=== PATIENT | female | born 1955 | race Caucasian/White ===

== ENCOUNTER → 2019-04-08 09:35 | Outpatient (CLI) | payer MEDICARE, OTHER, SELFPAY ==
--- NOTE | 2019-04-08 09:36 | DI.MG.S_ITS ---
BILATERAL DIGITAL SCREENING MAMMOGRAM 3D/2D WITH CAD: 04/08/2019 CLINICAL: Routine screening. Comparison is made to exams dated: 11/06/2013 mammogram and 09/14/2004 mammogram - [facility]. There are scattered fibroglandular elements in both breasts. Current study was also evaluated with a Computer Aided Detection (CAD) system. No significant masses, calcifications, or other findings are seen in either breast. There has been no significant interval change. IMPRESSION: NEGATIVE There is no mammographic evidence of malignancy. A 1 year screening mammogram is recommended. This exam was interpreted at Station ID: [id number]. NOTE: For mammograms, a report in lay terms will be sent to the patient. Approximately 15% of breast malignancies will not be visualized mammographically. In the management of a palpable breast mass, a negative mammogram must not discourage biopsy of a clinically suspicious lesion. Electronically Signed By: Kg shoemaker/alida:04/08/2019 12:04:13 letter sent: Normal Exam ACR BI-RADS Category 1: Negative [id number]
== END ==
PROVIDERS: PCP Family Medicine; Visit Provider Family Medicine
DX: Z12.31 Encounter for screening mammogram for malignant neoplasm of breast (principal)
CPT/HCPCS: 77063; 77067

== ENCOUNTER → 2020-05-04 16:50 | Outpatient (CLI) | payer MEDICARE, OTHER, SELFPAY | PROVIDERS: PCP Family Medicine; Visit Provider Physician Assistant | DX: R30.0 Dysuria (principal) | CPT/HCPCS: 87086 ==

== ENCOUNTER 2021-06-26 04:42 | Emergency (ER) | payer MEDICARE, OTHER, SELFPAY ==
[2021-06-26 04:52] VITALS: BP 126/72; PULSE 114; RESP 18; TEMP 36.7; O2SAT 95; BMI 25.0
[2021-06-26 05:17] LABS: Bacteria Urine Many (>30); RBC Urine 1-5/HPF (0-5/HPF); Squamous Epithelial Cell Urine None Seen (0-5/HPF); WBC Urine >100/HPF (0-5/HPF)
--- NOTE | 2021-06-26 05:20 | ED_ITS ---
HPI - General Adult General Chief complaint: Urogenital-Female Stated complaint: kidney pain Time Seen by Provider: 06/26/21 04:56 Source: patient Mode of arrival: Ambulatory History of Present Illness HPI narrative: Patient is a 66-year-old female who is here for evaluation of right-sided flank pain. States that the symptoms started within the past 24 hours. She is not having any urinary symptoms. Try to take some ibuprofen at home without much improvement. No fevers but does have some nausea. No diarrhea. She states she feels like her right flank is swollen compared to the left. Had a difficult time sleeping because of the discomfort. Related Data Previous Rx's Medication Instructions Recorded fluticasone propionate 50 2 spray NASAL DAILY #18.2 ml 08/03/19 mcg/actuation nasal spray,suspension (Flonase Allergy Relief) ondansetron 4 mg disintegrating 4 mg PO Q6-8H PRN #30 tab 05/20/21 tablet sumatriptan succinate 100 mg 100 mg PO QDAYP PRN #27 tab 05/20/21 tablet (Imitrex) cephalexin 500 mg capsule 500 mg PO TID 10 Days #29 cap 06/26/21 Allergies Allergy/AdvReac Type Severity Reaction Status Date / Time Sulfa (Sulfonamide Allergy Unknown Verified 05/20/21 09:41 Antibiotics) [SULFA (SULFONAMIDE ANTIBIOTICS)] amoxicillin [From Augmentin] AdvReac Mild N/V Verified 05/20/21 09:41 clavulanic acid AdvReac Mild N/V Verified 05/20/21 09:41 [From Augmentin] Review of Systems Constitutional Constitutional: Denies fever(s) Cardiovascular Cardiovascular: Reports system reviewed and no additional complaints, except as documented Respiratory Respiratory: Reports system reviewed and no additional complaints, except as documented Gastrointestinal Gastrointestinal: Denies abdominal pain, Reports nausea and Denies vomiting Genitourinary Genitourinary: Reports system reviewed and no additional complaints, except as documented Musculoskeletal Musculoskeletal: Reports back pain Hematologic/Lymphatic On Anticoagulants: No Patient History Medical History Nausea Sinusitis UTI (urinary tract infection) Social History Smoking Status: Current every day smoker Smoking Status: Current every day smoker alcohol intake frequency: 0-2 drinks per day Substance Use Type: does not use Exam Initial Vital Signs Initial Vital Signs: Vital Signs Temperature 98.0 F 06/26/21 04:52 Pulse Rate 114 H 06/26/21 04:52 Respiratory Rate 18 06/26/21 04:52 Blood Pressure 126/72 06/26/21 04:52 Pulse Oximetry 95 06/26/21 04:52 Const General: cooperative, comfortable, well developed and well groomed Limitations: mental status not altered HENMT Head: normal to inspection and normocephalic Resp Effort & Inspection: normal respiratory effort Cardio Rate: regular rate GI Inspection: non-distended Palpation: soft and No tender Back/Spine/Pelvis Back: CVA tenderness right Skin Lesions: no lesions Rashes: no rashes Neuro General: patient alert, patient awake and moves all extremities Extrem General: capillary refill normal Psych Appearance: well kempt Course Orders Ordered: ED Orders 06/26/21 04:49 Urine Culture Stat Urine Microscopic Stat Discontinued Medications Cephalexin HCl (Cephalexin 250 Mg Capsule) 500 mg PO NOW ONE Stop: 06/26/21 05:21 Vital Signs Vital signs: Vital Signs - 8 hr 06/26/21 04:52 Temperature 98.0 F Pulse Rate 114 H Respiratory Rate 18 Blood Pressure 126/72 Pulse Oximetry 95 Medical Decision Making Lab Data Labs: Lab Results 06/26/21 Range/Units 04:49 Urine RBC 1-5/hpf (0-5/HPF) Urine WBC >100/hpf H (0-5/HPF) Ur Squamous Epith Cells None seen (0-5/HPF) Urine Bacteria Many (>30) H (None) Ur Culture Indicated? Culture not indicate Micro UA Comment * Urine Dip Bedside Urine Glucose Negative Bedside Urine Bilirubin - Negative Bedside Urine Ketone - Negative Urine Specific [place] 1.020 Bedside Urine Occult Blood + Bedside Urine pH 6.0 Bedside Urine Protein +/- 15 Bedside Urine Urobilinogen - Negative Bedside Urine Nitrite + Positive Bedside Urine Leukocytes ++ 125 Esterase Point of care testing: Urine Dip Bedside Urine Glucose Negative Bedside Urine Bilirubin - Negative Bedside Urine Ketone - Negative Urine Specific [place] 1.020 Bedside Urine Occult Blood + Bedside Urine pH 6.0 Bedside Urine Protein +/- 15 Bedside Urine Urobilinogen - Negative Bedside Urine Nitrite + Positive Bedside Urine Leukocytes ++ 125 Esterase MDM Narrative Medical decision making narrative: Patient does have nitrite positive urine with leukocyte esterase and bacteria and white blood cells. Given her nausea and her right-sided flank pain I do h ave concern for early pyelonephritis. Patient is nontoxic appearing. Review of her labs shows that in April of last year she was treated for urinary tract infection however the urine culture was mixed rayray. She was told to stop taking the antibiotics. She is allergic to sulfa. Will give her Keflex. First dose is given here in the emergency department. Given Toradol for discomfort. Was told to take antibiotics as directed. There were transmitted to the pharmacy of her choice. She was given return precautions. She expressed understanding and agreement. Discharge Plan Departure Patient Disposition: Home Clinical Impression: UTI (urinary tract infection) Instructions: DI for Urinary Tract Infection (UTI) Activity Restrictions/Additional Instructions: I recommend that you take the antibiotics as directed. Your next dose will be later today. Return to the emergency department for any new or worsening symptoms. Prescriptions: New cephalexin 500 mg capsule 500 mg PO TID 10 Days Qty: 29 0RF No Action fluticasone propionate [Flonase Allergy Relief] 50 mcg/actuation spray,suspension 2 spray NASAL DAILY Qty: 18.2 0RF Rx Instructions: administer into each nostril ondansetron 4 mg tablet,disintegrating 4 mg PO Q6-8H PRN (Reason: nausea and vomiting) Qty: 30 0RF sumatriptan succinate [Imitrex] 100 mg tablet 100 mg PO QDAYP PRN (Reason: migraine headache) Qty: 27 0RF Referrals: Miscellaneous,Doctor, MD [Primary Care Provider] -
[2021-06-26] MEDS: cephALEXin 250 MG CAPSULE 500 MG PO (05:24)
[2021-06-26] MEDS: KETOROLAC 30 MG/ML VIAL IM (05:27)
== END 2021-06-26 05:33 | disposition home or self-care (01) ==
PROVIDERS: Emergency Provider Emergency Medicine
DX: N39.0 Urinary tract infection, site not specified (principal)
CPT/HCPCS: 81003; 81015; 87077; 87086; 87186; 96372; 99283; J1885

== ENCOUNTER 2022-03-10 06:53 | Emergency (ER) | payer MEDICARE, OTHER, SELFPAY ==
[2022-03-10] VITALS (7 sets, daily range): BP systolic 102–127; BP diastolic 58–78; PULSE 69–84; RESP 18–21; TEMP 36.4; O2SAT 91–100; BMI 24.0
--- NOTE | 2022-03-10 07:03 | ED_ITS ---
HPI - General Adult General Chief complaint: Dizziness Stated complaint: nausea/dizzy Time Seen by Provider: 03/10/22 07:02 History of Present Illness HPI narrative: 66-year-old female daily smoker with history of migraines presents for evaluation of vague dizziness. She states that she is been having trouble off and on for quite some time at about 2-3 days ago she noticed a significant worsening in her symptoms. She denies any since that the room is spinning but states that she is very lightheaded and profoundly nauseated. She gets pains in her neck when the seems to happened. She has had manipulation by a chiropractor that seemed to help. She denies any known trauma, fever use of blood thinners. She denies blurred vision, trouble speech but does state on occasion she gets trouble with her left arm. She is had no chest pain or shortness of breath. She denies fever or chills. She has had no planned change in diet but states she is been so nauseated for the past few days that she is been unable to eat though she has been keeping liquids down. She denies abdominal pain, diarrhea nor urinary complaints such as dysuria, frequency or urgency. She denies any medication change. She was recently out of state and was seen and evaluated at an urgent care in [place] and told she has vertigo. She does not think she is actually having symptoms at the moment but states it has been terrible the past few days Related Data Previous Rx's Medication Instructions Recorded fluticasone propionate 50 2 spray intranasal DAILY #18.2 mL 08/03/19 mcg/actuation nasal spray,suspension (Flonase Allergy Relief) ondansetron 4 mg disintegrating 4 mg PO Q6-8H PRN nausea and 05/20/21 tablet vomiting #30 tabs sumatriptan succinate 100 mg 100 mg PO QDAYP PRN migraine 05/20/21 tablet (Imitrex) headache #27 tabs ondansetron 4 mg disintegrating 4 mg PO TID-QID PRN nausea and 03/10/22 tablet vomiting #20 tabs Allergies Allergy/AdvReac Type Severity Reaction Status Date / Time Sulfa (Sulfonamide Allergy Unknown Verified 05/20/21 09:41 Antibiotics) [SULFA (SULFONAMIDE ANTIBIOTICS)] amoxicillin [From Augmentin] AdvReac Mild N/V Verified 05/20/21 09:41 clavulanic acid AdvReac Mild N/V Verified 05/20/21 09:41 [From Augmentin] Review of Systems Review of Systems Narrative: GENERAL: Denies chills, fatigue, malaise, fever, sweats. HEENT: Denies sinus pain, ear pain, sore throat, difficulty swallowing, dizziness. RESPIRATORY: Denies dyspnea, cough, wheezing, hemoptysis, sputum. CARDIOVASCULAR: Denies chest pain, palpitations, orthopnea, edema, GASTROINTESTINAL: See HPI : Denies dysuria, frequency, incontinence, hematuria, urinary retention. MUSCULOSKELETAL: denies weakness, joint pain, or bony pain SKIN: Denies rash, skin lesions, or other NEUROLOGIC: See HPI PSYCHIATRIC: No concerning psychosocial issues. 12 point review of systems is negative except for those stated above Patient History Medical History Nausea Sinusitis UTI (urinary tract infection) Social History Smoking Status: Current every day smoker Smoking Status: Current every day smoker alcohol intake frequency: 0-2 drinks per day Substance Use Type: does not use Exam Narrative Exam Narrative: GENERAL: [66] year old patient appears stated age. Well-developed patient, in mild distress. HEAD: Atraumatic. Normocephalic. EYES: Pupils equal round and reactive. Extraocular motions intact. No scleral icterus. No injection or drainage. ENT: Nose without bleeding, purulent drainage. Throat without erythema, tonsillar hypertrophy or exudate. Airway patent. NECK: Trachea midline. Non tender CARDIOVASCULAR: Regular rate and rhythm without murmurs, gallops, or rubs. RESPIRATORY: Clear to auscultation. Breath sounds equal bilaterally. No wheezes, rales, or rhonchi. GASTROINTESTINAL: Abdomen soft, non-tender, nondistended. EXTREMITIES: No edema or joint tenderness. BACK: Nontender without deformity or crepitance. No flank tenderness. NEURO: AOx3. SKIN: No rash or erythema of visible areas NIH Stroke Scale 1a. LOC: Patient is alert and keenly responsive (0) 1b. LOC Questions: Patient answers both LOC questions accurately (0) 1c. LOC Commands: Patient performs both tasks correctly (0) 2. Best Gaze: Normal (0) 3. Visual: No visual loss (0) 4. Facial palsy: Normal symmetrical movements (0) 5. Motor arm: No drift (0) 6. Motor leg: No drift (0) 7. Limb ataxia: Absent (0) 8. Sensory: Normal (0) 9. Best language: No aphasia; normal (0) 10. Dysarthria: Normal (0) 11. Extinction and inattention: No abnormality (0) NIHSS: 0 Initial Vital Signs Initial Vital Signs: Vital Signs Temperature 97.6 F 03/10/22 07:05 Pulse Rate 84 03/10/22 07:05 Respiratory Rate 18 03/10/22 07:05 Blood Pressure 127/78 03/10/22 07:05 Pulse Oximetry 100 03/10/22 07:05 Oxygen Delivery Method 03/10/22 07:05 Course Orders Ordered: ED Orders 03/10/22 09:30 MR head/brain wo con Stat Discontinued Medications Sodium Chloride (Normal Saline 0.9%) 1,000 mls @ 1,000 mls/hr IV BOLUS ONE Stop: 03/10/22 08:23 Last Infusion: 03/10/22 11:11 Dose: 0 mls/hr Documented By: Admin: 03/10/22 08:33 Dose: 1,000 mls/hr Documented By: DELILAH Ondansetron HCl (Ondansetron 4 Mg/2 Ml Inj) 4 mg IV NOW ONE Stop: 03/10/22 08:30 Last Admin: 03/10/22 08:33 Dose: 4 mg Documented By: DELILAH Vital Signs Vital signs: Vital Signs - 8 hr 03/10/22 10:42 03/10/22 10:44 03/10/22 10:44 Pulse Rate 80 72 Respiratory Rate Blood Pressure 116/74 Pulse Oximetry 91 98 03/10/22 11:00 03/10/22 11:00 Pulse Rate 72 Respiratory Rate 21 Blood Pressure 102/63 Pulse Oximetry 99 Medical Decision Making Lab Data Result diagrams: 03/10/22 07:03 03/10/22 07:03 Labs: Lab Results 03/10/22 03/10/22 03/10/22 Range/Units 07:03 07:03 07:03 WBC 6.6 (4.5-11.0) X10^3/uL RBC 4.90 (4.0-5.2) X10^6/uL Hgb 15.2 (12.0-16.0) g/dL Hct 44.0 (36-46) % MCV 89.8 (80-100) fL MCH 31.1 (26-34) PG MCHC 34.6 (30-36) % RDW 13.4 (11.6-14.8) % Plt Count 332 (150-400) X10^3/uL Neut % (Auto) 25.2 L (50-75) % Lymph % (Auto) 61.7 H (25-40) % [place] % (Auto) 10.0 (3-14) % Eos % (Auto) 2.1 (2-4) % Baso % (Auto) 1.0 (0-2) % Neut # (Auto) 1700 (8464-7381) /uL Lymph # (Auto) 4100 (3259-4056) /uL [place] # (Auto) 700 (0-900) /uL Eos # (Auto) 100 (0-450) /uL Baso # (Auto) 100 (0-100) /uL D-Dimer 808 H (<500) ng/ml Sodium 138 (137-145) mmol/L Potassium 3.7 (3.4-5.1) mmol/L Chloride 105 (98-107) mmol/L Carbon Dioxide 24 (22-32) mmol/L BUN 13 (7-17) mg/dL Creatinine 0.79 (0.52-1.04) mg/dL Estimated GFR > 60 (>60) mL/min BUN/Creatinine Ratio 16.5 (6-22) Glucose 114 H (80-110) mg/dL Calcium 9.4 (8.4-10.2) mg/dL Total Bilirubin 0.5 (0.2-1.3) mg/dL AST 48 H (14-36) IU/L ALT 53 H (<35) IU/L Alkaline Phosphatase 74 (38-126) U/L Total Creatine Kinase 60 (30-135) U/L CK-MB (CK-2) TNP CK-MB (CK-2) Rel Index TNP Troponin I < 0.012 (0.01-0.034) ng/mL Total Protein 9.2 H (6.3-8.2) g/dL Albumin 4.5 (3.5-5.0) g/dL Globulin 4.7 H (1.7-4.1) g/dL Albumin/Globulin Ratio 1.0 (1.0-2.8) Imaging Data CT scan - head: Radiologist's Impression: Allergy/Adv: Sulfa (Sulfonamide Antibiotics), amoxicillin, clavulanic acid (More??) Close Brain MRI (Signed) Call,Ronny 03/10/22 Head/Neck CTA (Signed) Call,Ronny 03/10/22 Chest X-Ray (Signed) Call,Ronny - 03/10/22 Mammogram Screening (Signed) Kg Beavers - 04/08/19 Launch?[place] [address] Magnetic Resonance Report Signed Patient: Tessie Stevens MR#: [id number] : 1955 Acct:[id number] Age/Sex: 66 / F Date of Service: 03/10/22 Loc: ED Accession Number: [id number] ?? Procedure: MR head/brain wo con Ordering Provider: Latrell Lara D.O. PROCEDURE:? MR HEAD/BRAIN WO CON ? INDICATIONS:? dizziness, no other neuro symptoms, normal CTA ? TECHNIQUE:? Noncontrast axial T1 spin echo, axial T2 fast spin echo, sagittal and axial FLAIR, coronal T2 fast spin echo, axial gradient echo, axial diffusion and ADC through the brain.? ? COMPARISON:? [facility], CT, CT ANGIO HEAD AND NECK, 03/10/2022, 8:01. ? FINDINGS:? Image quality:? Good.? ? CSF Spaces:? Basal cisterns are patent.? No extra-axial fluid collections.? Ventricles are normal in size and shape.? ? Brain:? No intracranial masses or hemorrhage.? [place]/white matter interface is normal.? A few foci of FLAIR signal/T2 signal hyperintensity within the deep white matter.? Brainstem appears normal.? Diffusion-weighted images demonstrate no acute ischemic insult.? No chronic ischemic insults.? Normal intravascular flow voids are present.? ? Skull and face:? Calvarium has normal marrow signal.? Orbits appear normal.? ? Sinuses:? Sinuses and mastoids are clear.? ? IMPRESSION:? No acute infarct. ? ? A few non-specific foci of FLAIR signal hyperintensity within the deep white matter.? Suspect chronic microvascular ischemic disease.? ? Dictated by: Ronny Ocasio M.D. on 03/10/2022 at 9:54 ? ? Approved by: Ronny Ocasio M.D. on 03/10/2022 at 9:57 ? MRI Brain: Radiologist's Impression: Allergy/Adv: Sulfa (Sulfonamide Antibiotics), amoxicillin, clavulanic acid (More??) Close Brain MRI (Signed) Call,Ronny 03/10/22 Head/Neck CTA (Signed) Call,Ronny - 03/10/22 Chest X-Ray (Signed) Call,03/10/22 Mammogram Screening (Signed) Kg Beavers - 04/08/19 Launch?[place] [address] Magnetic Resonance Report Signed Patient: Tessie Stevens MR#: [id number] : 1955 Acct:[id number] Age/Sex: 66 / F Date of Service: 03/10/22 Loc: ED Accession Number: [id number] ?? Procedure: MR head/brain wo con Ordering Provider: Latrell Lara D.O. PROCEDURE:? MR HEAD/BRAIN WO CON ? INDICATIONS:? dizziness, no other neuro symptoms, normal CTA ? TECHNIQUE:? Noncontrast axial T1 spin echo, axial T2 fast spin echo, sagittal and axial FLAIR, coronal T2 fast spin echo, axial gradient echo, axial diffusion and ADC through the brain.? ? COMPARISON:? [facility], CT, CT ANGIO HEAD AND NECK, 03/10/2022, 8:01. ? FINDINGS:? Image quality:? Good.? ? CSF Spaces:? Basal cisterns are patent.? No extra-axial fluid collections.? Ventricles are normal in size and shape.? ? Brain:? No intracranial masses or hemorrhage.? [place]/white matter interface is normal.? A few foci of FLAIR signal/T2 signal hyperintensity within the deep white matter.? Brainstem appears normal.? Diffusion-weighted images demonstrate no acute ischemic insult.? No chronic ischemic insults.? Normal intravascular flow voids are present.? ? Skull and face:? Calvarium has normal marrow signal.? Orbits appear normal.? ? Sinuses:? Sinuses and mastoids are clear.? ? IMPRESSION:? No acute infarct. ? ? A few non-specific foci of FLAIR signal hyperintensity within the deep white matter.? Suspect chronic microvascular ischemic disease.? ? Dictated by: Ronny Ocasio M.D. on 03/10/2022 at 9:54 ? ? Approved by: Ronny Ocasio M.D. on 03/10/2022 at 9:57 ? MDM Narrative Medical decision making narrative: Patient has very reassuring history and physical exam. She has little if any symptoms here in emergency department. Given ongoing and vague episodes of dizziness with right-sided head pain and history of cervical manipulation CT angiogram of head and neck was performed which showed no evidence of abnor mality, specifically no carotid or vertebral artery dissection nor bleeding or mass. MRI was obtained which shows no evidence of stroke. The majority of her symptoms seem to be related to increased nasal secretions and problems in her right ear. She has no chest pain or shortness of breath nor tachycardia, tachypnea or hypoxemia. She does have a slightly elevated D-dimer when corrected for her age and pulmonary embolism is considered. However had extensive discussion with the patient at the bedside regarding my low clinical suspicion of a clinically significant pulmonary embolism and the risk associated with a 2nd IV contrasted study of the day. We discussed these risks and benefits and sure the opinion that we will focus on other sources of dizziness with extensive return precautions which patient understands based on her verbalization of them back to me. She has had questions answered to her apparent satisfaction Discharge Plan Departure Patient Disposition: Home Clinical Impression: Dizziness Instructions: DI for Dizziness-Nonvertigo Activity Restrictions/Additional Instructions: *You have been diagnosed with [dizziness. As we discussed you have a very reassuring history and physical exam. Your labs, CT scan and MRI of the brain are very reassuring and showed no evidence of dissection of the arteries in your neck, bleeding in her Neil, stroke, brain mass or other significant diagnosis that would require a specific and immediate intervention] *What to do: *Please continue to take your regular medications as directed. [ x] New medication prescriptions sent to your pharmacy: [ [facility]] [ ] New medication written as a paper prescription [ ] No new medications given *Please follow up with your primary care provider in 2-3 days, call for an appointment. Let them know you were seen in the Emergency Department and that we ask that you be seen in follow up. We will electronically transmit a record of today's note if your PCP is in our system * also as we discussed it seems most reasonable to follow-up with ear nose and throat. Though I can not do an official referral or schedule an appointment for you if you call them and let them know you were seen in the emergency department and we would like you seen in follow-up this will usually help get you in. *Return to Emergency Department if you should have any new, worsening or concerning symptoms, such as [fever greater than 101 F, shaking chills, worsening pain, persistent vomiting or other bothersome symptoms] Prescriptions: New ondansetron 4 mg tablet,disintegrating 4 mg PO TID-QID PRN (Reason: nausea and vomiting) Qty: 20 0RF No Action fluticasone propionate [Flonase Allergy Relief] 50 mcg/actuation spray,suspension 2 spray NASAL DAILY Qty: 18.2 0RF Rx Instructions: administer into each nostril ondansetron 4 mg tablet,disintegrating 4 mg PO Q6-8H PRN (Reason: nausea and vomiting) Qty: 30 0RF sumatriptan succinate [Imitrex] 100 mg tablet 100 mg PO QDAYP PRN (Reason: migraine headache) Qty: 27 0RF Referrals: Juan Mckeon MD [Physician] - Jordan Birmingham MD [Physician] - Miscellaneous,MD Jessica [Primary Care Provider] - Visit Report Forms: Patient Portal/API
--- NOTE | 2022-03-10 07:24 | DI.RAD.S_ITS ---
PROCEDURE: XR CHEST 1V INDICATIONS: dizzy, weak TECHNIQUE: One view of the chest was acquired. COMPARISON: None. FINDINGS: Surgical changes and devices: None. Lungs and pleura: Lungs are clear. No pleural effusions or pneumothorax. Mediastinum: Mediastinal contours appear normal. Heart size is normal. Bones and chest wall: No suspicious bony lesions. Overlying soft tissues appear unremarkable. IMPRESSION: No acute cardiopulmonary abnormality. Dictated by: Ronny Ocasio M.D. on 03/10/2022 at 7:28 Approved by: Ronny Ocasio M.D. on 03/10/2022 at 7:30
[2022-03-10 07:38] LABS: Add Manual Diff / Slide Review NO; Basophils Absolute Auto 100 /uL (0-100); Eosinophils Absolute Auto 100 /uL (0-450); Eosinophils Percent Auto 2.1 % (2-4); Hemoglobin 15.2 g/dL (12.0-16.0); Lymphocytes Absolute Auto 4100 /uL (1100-4500); Lymphocytes Percent Auto 61.7 % (25-40); Mean Corpuscular HGB Conc 34.6 % (30-36); Mean Corpuscular Hemoglobin 31.1 PG (26-34); Mean Corpuscular Volume 89.8 fL (80-100); Monocytes Absolute Auto 700 /uL (0-900); Neutrophils Absolute Auto 1700 /uL (1500-7000); Neutrophils Percent Auto 25.2 % (50-75); Platelet Count 332 X10^3/uL (150-400); Red Cell Distribution Width 13.4 % (11.6-14.8); White Blood Cell Count 6.6 X10^3/uL (4.5-11.0)
[2022-03-10 07:41] LABS: D Dimer 808 ng/ml (<500)
[2022-03-10 07:44] LABS: Alanine Aminotransferase 53 IU/L (<35); Albumin 4.5 g/dL (3.5-5.0); Alkaline Phosphatase 74 U/L (38-126); Aspartate Aminotransferase 48 IU/L (14-36); BUN Creatinine Ratio 16.5 (6-22); Bilirubin Total 0.5 mg/dL (0.2-1.3); Blood Urea Nitrogen 13 mg/dL (7-17); Calcium 9.4 mg/dL (8.4-10.2); Carbon Dioxide 24 mmol/L (22-32); Chloride 105 mmol/L (98-107); Creatine Kinase 60 U/L (30-135); Estimated Glomerular Filt Rate > 60 mL/min (>60); Globulin 4.7 g/dL (1.7-4.1); Glucose 114 mg/dL (80-110); HEMOLYSIS 16 (0-50); Potassium 3.7 mmol/L (3.4-5.1); Sodium 138 mmol/L (137-145); Total Protein 9.2 g/dL (6.3-8.2)
[2022-03-10 07:55] LABS: Troponin I < 0.012 ng/mL (0.01-0.034)
--- NOTE | 2022-03-10 07:55 | DI.CT.S_ITS ---
PROCEDURE: CT ANGIO HEAD AND NECK INDICATIONS: dizziness, neck pain, chiropractic manipulation, dissection? TECHNIQUE: Pre-contrast 4.5 mm thick sections acquired from the foramen magnum to the vertex. After the administration of intravenous contrast, 1 mm thick sections acquired from the aortic arch through the [place] of [place]. Post-contrast 4.5 mm thick sections then re-acquired from the foramen magnum to the vertex. 3-dimensional yxxzjlu-swjilecel-gplieedqjv (MIP) and/or volume rendering reformats were acquired of the central intracranial vasculature and neck separately. For radiation dose reduction, the following was used: automated exposure control, adjustment of mA and/or kV according to patient size. COMPARISON: None. FINDINGS: Image quality: Good. BRAIN: CSF spaces: Ventricles are normal in size and shape. Basal cisterns are patent. No extra-axial fluid collections. Brain: No midline shift. No intracranial bleeds or masses. Cochran-white matter interface appears intact. Skull and face: Calvarium and facial bones appear intact, without suspicious lesions. Orbits appear normal. Sinuses: Sinuses and mastoids are clear. HEAD CT ANGIOGRAPHY: Anterior circulation: Intracranial internal carotid arteries are normal in size and flow. The flow within the paired anterior cerebral arteries is normal and symmetric. The flow within the middle cerebral arteries is normal and symmetric. The anterior communicating artery is seen. No aneurysms are seen. Posterior circulation: Visualized portions of the vertebral arteries demonstrate normal caliber, and join to form a normal appearing basilar artery. origin of the posterior communicating arteries bilaterally. Flow within the posterior cerebral arteries is normal and symmetric. No aneurysms are seen. NECK CT ANGIOGRAPHY: Carotid system: The great vessels demonstrate a conventional anatomy as they arise from the aortic arch. The origins of the common carotid arteries appear patent. The common carotid arteries demonstrate normal caliber and courses. The bifurcation regions are both widely patent. Less than 50% stenosis at the bilateral carotid bulbs. Mild calcified plaque. The internal carotid arteries demonstrate normal calibers and courses. Posterior circulation: The left vertebral artery is dominant. The origins of the vertebral arteries both appear widely patent. The more superior extracranial portions of both vertebral arteries also demonstrate normal courses and calibers. They join to form a normal appearing basilar artery. Soft tissues: Visualized neck soft tissues demonstrate no suspicious abnormalities. Heterogeneous right thyroid nodule measuring 3 cm, (). Bones: No suspicious bony lesions. Vupv-bc-zxzaldrm degenerative change in the cervical spine most pronounced at C5-C6. Visualized cervical spine appears normally aligned. IMPRESSION: 1. No acute intracranial hemorrhage. 2. No large vessel occlusion. 3. No critical stenosis. 4. Right thyroid nodule measuring 3 cm. -Recommend nonemergent thyroid ultrasound. Any quantitative measurements of stenosis were performed using NASCET criteria. Dictated by: Ronny Ocasio M.D. on 03/10/2022 at 8:07 Approved by: Ronny Ocasio M.D. on 03/10/2022 at 8:19
[2022-03-10] MEDS: SODIUM CHLORIDE 0.9% 1,000 ML 1000 ML IV (08:33)
[2022-03-10] MEDS: ONDANSETRON 4 MG/2 ML INJ IV (08:33)
--- NOTE | 2022-03-10 09:30 | DI.MRI.S_ITS ---
PROCEDURE: MR HEAD/BRAIN WO CON INDICATIONS: dizziness, no other neuro symptoms, normal CTA TECHNIQUE: Noncontrast axial T1 spin echo, axial T2 fast spin echo, sagittal and axial FLAIR, coronal T2 fast spin echo, axial gradient echo, axial diffusion and ADC through the brain. COMPARISON: [facility], CT, CT ANGIO HEAD AND NECK, 03/10/2022, 8:01. FINDINGS: Image quality: Good. CSF Spaces: Basal cisterns are patent. No extra-axial fluid collections. Ventricles are normal in size and shape. Brain: No intracranial masses or hemorrhage. Cochran/white matter interface is normal. A few foci of FLAIR signal/T2 signal hyperintensity within the deep white matter. Brainstem appears normal. Diffusion-weighted images demonstrate no acute ischemic insult. No chronic ischemic insults. Normal intravascular flow voids are present. Skull and face: Calvarium has normal marrow signal. Orbits appear normal. Sinuses: Sinuses and mastoids are clear. IMPRESSION: No acute infarct. A few non-specific foci of FLAIR signal hyperintensity within the deep white matter. Suspect chronic microvascular ischemic disease. Dictated by: Ronny Ocasio M.D. on 03/10/2022 at 9:54 Approved by: Ronny Ocasio M.D. on 03/10/2022 at 9:57
== END 2022-03-10 11:29 | disposition home or self-care (01) ==
PROVIDERS: Emergency Provider Emergency Medicine
DX: R42 Dizziness and giddiness (principal); R11.0 Nausea; R51.9 Headache, unspecified
CPT/HCPCS: 36415; 70496; 70498; 70551; 71045; 80053; 82550; 84484; 85025; 85379; 93005; 96361; 96374; 99284; J2405; Q9967

== ENCOUNTER → 2022-04-23 09:02 | Outpatient (CLI) | payer MEDICARE, OTHER, SELFPAY ==
[2022-04-23 09:53] LABS: Alanine Aminotransferase 45 IU/L (<35); Albumin 4.5 g/dL (3.5-5.0); Alkaline Phosphatase 66 U/L (38-126); Aspartate Aminotransferase 49 IU/L (14-36); BUN Creatinine Ratio 18.3 (6-22); Bilirubin Total 0.5 mg/dL (0.2-1.3); Blood Urea Nitrogen 13 mg/dL (7-17); Calcium 9.3 mg/dL (8.4-10.2); Carbon Dioxide 26 mmol/L (22-32); Chloride 106 mmol/L (98-107); Cholesterol 254 mg/dL (140-199); Estimated Glomerular Filt Rate > 60 mL/min (>60); Globulin 4.5 g/dL (1.7-4.1); Glucose 104 mg/dL (80-110); HDL Cholesterol 53 mg/dL (40-60); HEMOLYSIS < 15 (0-50); LDL Cholesterol Calculated 164 mg/dL (<100); Potassium 4.7 mmol/L (3.4-5.1); Sodium 139 mmol/L (137-145); Triglycerides 185 mg/dL (35-150)
[2022-04-23 10:01] LABS: Hemoglobin A1C% w Est Avg Glu 5.4 % (4.0-6.0)
[2022-04-23 10:32] LABS: TSH w/ Reflex to FT4 0.37 uIU/mL (0.47-4.68)
[2022-04-23 10:57] LABS: Free T4, Direct Thyroxine 1.63 ng/dL (0.78-2.19)
== END ==
PROVIDERS: PCP Family Medicine; Referring Provider Family Medicine; Visit Provider Family Medicine
DX: Z86.69 Personal history of other diseases of the nervous system and sense organs (principal); R11.0 Nausea; E04.1 Nontoxic single thyroid nodule; F17.200 Nicotine dependence, unspecified, uncomplicated; R73.9 Hyperglycemia, unspecified; R74.8 Abnormal levels of other serum enzymes; E05.90 Thyrotoxicosis, unspecified without thyrotoxic crisis or storm
CPT/HCPCS: 36415; 80053; 80061; 83036; 84439; 84443

== ENCOUNTER → 2022-05-10 10:01 | Outpatient (CLI) | payer MEDICARE, OTHER, SELFPAY ==
--- NOTE | 2022-05-10 10:04 | DI.US.S_ITS ---
PROCEDURE: US THYROID INDICATIONS: enlarged right thyroid gland TECHNIQUE: Real-time scanning was performed of the thyroid gland, with image documentation. COMPARISON: Located [facility], CT, CT ANGIO HEAD AND NECK, 03/10/2022, 8:01. FINDINGS: Right: Thyroid lobe measures 6.3 x 2.8 x 2.4 cm, and is heterogeneous in echotexture. Left: Thyroid lobe measures 5.5 x 1.8 x 1.8 cm, and is heterogeneous in echotexture. Isthmus: 3.1 mm thick. Nodule number: 1 Location: Right superior Size: 4.2 x 2.8 x 2.2 cm. Composition: Solid with increased vascularity Echogenicity: Hyperechoic Shape: wider than tall. Margins: 3 most Echogenic foci: Non Total points: 3 ACR TI-RADS category: 3 Nodule number: 2 Location: Right inferior Size: 1.5 x 1.4 x 1.8 cm. Composition: Solid Echogenicity: Hyperechoic Shape: wider than tall. Margins: Lobulated Echogenic foci: Punctate Total points: 8 ACR TI-RADS category: 5 Nodule number: 3 Location: Left superior Size: 1.2 x 0.7 x 1.2 cm. Composition: Solid Echogenicity: Hyperechoic Shape: wider than tall. Margins: Irregular Echogenic foci: Punctate Total points: 8 ACR TI-RADS category: 5 Nodule number: 4 Location: Left inferior Size: 0.7 x 0.6 x 0.6 cm. Composition: Solid Echogenicity: Hyperechoic Shape: wider than tall. Margins: Smooth Echogenic foci: Punctate Total points: 6 ACR TI-RADS category: 4 IMPRESSION: 1. Heterogeneous thyroid gland with multiple thyroid nodules. 2. Recommend ultrasound-guided biopsy of nodule 1, 2 and 3 (or see enclosed follow-up recommendation). 4. Recommend follow-up ultrasound for nodules 3 in 12 months. ACR TI-RADS definitions and recommendations: TI-RADS 1 (benign): 0 points. FNA not needed. TI-RADS 2 (not suspicious): 2 points. FNA not needed. TI-RADS 3 (mildly suspicious): 3 points. * FNA if 2.5 cm or larger, follow up if 1.5 cm or larger (at 1, 3, and 5 years). TI-RADS 4 (moderately suspicious): 4-6 points. * FNA if 1.5 cm or larger, follow up if 1 cm or larger (at 1, 2, 3, and 5 years). TI-RADS 5 (highly suspicious): 7 points or more. * FNA if 1 cm or larger, follow up if 0.5 cm or larger (every year for 5 years). Dictated by: Danyel Diana M.D. on 05/10/2022 at 14:16 Approved by: Danyel Diana M.D. on 05/10/2022 at 14:37
== END ==
PROVIDERS: PCP Family Medicine; Referring Provider Family Medicine; Visit Provider Family Medicine
DX: E04.2 Nontoxic multinodular goiter (principal); Z86.69 Personal history of other diseases of the nervous system and sense organs; R11.0 Nausea
CPT/HCPCS: 76536

== ENCOUNTER → 2022-06-13 13:14 | Outpatient (CLI) | payer MEDICARE, OTHER, SELFPAY ==
--- NOTE | 2022-06-13 | PATH_ITS ---
Note [facility] Accession Number: [id number] TESTS RESULT FLAG UNITS REF RANGE LAB Clinician Provided Cytology Information No. of containers..01 Other (Miscellaneous) No. of containers..08 Previously Prepared Cytology Slide Source: INFERIOR RIGHT THYROID NODULE DIAGNOSIS: INFERIOR RIGHT THYROID NODULE INCONCLUSIVE. BETHESDA CATEGORY III. ATYPIA OF UNDETERMINED SIGNIFICANCE. THE SPECIMEN IS SCANTLY CELLULAR WITH SCATTERED HURTHLE CELLS IN A BACKGROUND OF COLLOID. SOME COLLOID APPEARS DENSE. THERE IS NO INCREASE IN LYMPHOCYTES. THESE FINDINGS COULD REPRESENT HURTHLE CELL HYPERPLASIA, BUT AN ONCOCYTIC NEOPLASM CANNOT BE COMPLETELY EXCLUDED. MOLECULAR STUDIES ARE REQUESTED AND WILL BE REPORTED SEPARATELY. Pathologist ICD10: R89.6 Signed out by: Dora Mcbride MD, Pathologist NPI- [id number] Performed by: Ismael Guevara, Forensic Psychologist ([facility]) Gross description: 30 CC, PINK, CLEAR RECEIVED IN WHITE CAP CYTOLYT CONTAINER RECEIVED 4 ALCOHOL FIXED SLIDES IN 2 GREEN CAP COFFINS RECEIVED 4 STAINED SLIDES IN SLIDE BECK RECEIVED 1 RNA VIAL /RZA 06/14/2022 1156 Local FLAG LEGEND: L-Low Normal,H-High Normal,LL-Alert Low,HH-Alert High <-Panic Low,>-Panic High,A-Abnormal,AA-Critical Abnormal Performed at: 01 =Z [facility] Cytology [address] [place] [address], [place] [address] Durga Gusman MD, Performed at: [address] [place] [address] Cytology [address] [address] [facility], [place], [place] [id number] MD Durga Gusman MD Phone: [phone]
--- NOTE | 2022-06-13 | PATH_ITS ---
Note [facility] Accession Number: [id number] TESTS RESULT FLAG UNITS REF RANGE LAB Clinician Provided Cytology Information No. of containers..01 Other (Miscellaneous) No. of containers..00 Previously Prepared Cytology Slide Source: SUPERIOR RIGHT THYRO Clinician ICD10: E04.1 DIAGNOSIS: SUPERIOR RIGHT THYRO SUSPICIOUS FOR NEOPLASM. BETHESDA CATEGORY IV. SUSPICIOUS FOR ONCOCYTIC NEOPLASM. SPECIMEN CONSISTS OF ABUNDANT HURTHLE-TYPE CELLS IN SHEETS AND SMALL CLUSTERS WITH MINIMAL COLLOID. THERE IS FOCAL ATYPIA. THE DIFFERENTIAL DIAGNOSIS INCLUDES AN ONCOCYTIC NEOPLASM (HURTHLE CELL NEOPLASM, PAPILLARY CARCINOMA, AND GRANULAR CELL TUMOR); A PARATHYROID NEOPLASM CANNOT BE COMPLETELY EXCLUDED. Pathologist ICD10: D34 Signed out by: Dora Mcbride MD, Pathologist NPI- [id number] Performed by: George Roque, Budget Officer ([facility]) Gross description: 30 CC, PINK, CLEAR RECEIVED IN WHITE CAP CYTOLYT CONTAINER RECEIVED 5 ALCOHOL FIXED SLIDES IN 2 GREEN CAP CONTAINERS RECEIVED 5 STAINED SLIDES IN SLIDE BECK RECEIVED 1 RNA VIAL /RZA 06/14/2022 1155 Local FLAG LEGEND: L-Low Normal,H-High Normal,LL-Alert Low,HH-Alert High <-Panic Low,>-Panic High,A-Abnormal,AA-Critical Abnormal Performed at: 01 =[address] [facility] Cytology [address] [place] [address], [place] [address] Durga Gusman MD, Performed at: [address] [facility] Cytology [address], [place], [place] [id number] MD Durga Gusman MD Phone: [phone]
--- NOTE | 2022-06-13 13:16 | DI.US.S_ITS ---
PROCEDURE: US FINE NEEDLE ASPIRATION INDICATIONS: Thyroid nodules TECHNIQUE: The indications, alternatives, benefits, risks, and complications of the procedure were explained to the patient. Written informed consent was obtained and placed in the chart. The area of interest was examined sonographically and a site was chosen for ultrasound guided percutaneous sampling. The skin was prepared and draped in the usual fashion, and anesthetized with 1% lidocaine infiltrated from the skin down to the lesion. Multiple passes were then performed, with contents emptied into an appropriate pathology specimen container. A bandage was applied to the area of access at completion of the study. COMPARISON: None. FINDINGS: Location(s) of lesion(s) sampled: To right thyroid lobe nodules sampled [place]: 25 gauge hypodermic needles. Number of passes: 5 in the right superior thyroid nodule and 4 in the right inferior thyroid nodule. Medications: 1% lidocaine for local anaesthesia. Complications: None. IMPRESSION: Successful ultrasound-guided fine needle aspiration of two right thyroid lobe nodules. Cytology results are pending. Dictated by: Neymar Hernandez M.D. on 06/14/2022 at 8:36 Approved by: Neymar Hernandez M.D. on 06/14/2022 at 8:37
== END ==
PROVIDERS: PCP Family Medicine; Referring Provider Family Medicine; Visit Provider Family Medicine
DX: E04.2 Nontoxic multinodular goiter (principal); E05.90 Thyrotoxicosis, unspecified without thyrotoxic crisis or storm
CPT/HCPCS: 10005

== ENCOUNTER → 2022-08-20 12:48 | Outpatient (CLI) | payer MEDICARE, OTHER, SELFPAY ==
--- NOTE | 2022-08-20 | PATH_ITS ---
Note [facility] Accession Number: [id number] TESTS RESULT FLAG UNITS REF RANGE LAB Clinician Provided Cytology Information No. of containers..01 Other (Miscellaneous) No. of containers..02 Previously Prepared Cytology Slide Source: LT UPPER THYROID NODULE #3 DIAGNOSIS: LT UPPER THYROID NODULE #3, FINE NEEDLE ASPIRATION. NEGATIVE FOR MALIGNANT CELLS. ADEQUATE FOR EVALUATION. COLLOID AND FOLLICULAR GROUPS ARE PRESENT. BENIGN FOLLICULAR (GOITEROUS) NODULE (BETHESDA CATEGORY II), SEE COMMENT. COMMENT: MICROSCOPIC EXAMINATION REVEALS A MILDLY CELLULAR ASPIRATE, COMPOSED OF ABUNDANT COLLOID, FOLLICULAR GROUPS WITH FOCAL HURTHLE CELL CHANGES, WITHOUT SIGNIFICANT CYTOLOGIC OR ARCHITECTURAL ATYPIA, AND BACKGROUND MACROPHAGES. THESE FINDINGS SUPPORT A BENIGN FOLLICULAR (GOITEROUS) NODULE. CORRELATION WITH CLINICAL AND RADIOGRAPHIC FINDINGS IS RECOMMENDED. ACCORDING TO THE BETHESDA REPORTING SYSTEM FOR THYROID CYTOPATHOLOGY, THE RISK OF MALIGNANCY IN THE CATEGORY BENIGN-CATEGORY II IS 0-3%; THEREFORE RECOMMEND CONTINUED ULTRASOUND SURVEILLANCE WITH REPEAT FNA IF THE NODULE SIGNIFICANTLY INCREASES IN SIZE. Pathologist ICD10: E04.2 Signed out by: Celeste Van MD, Pathologist NPI- [id number] Performed by: Suhail Childers, National Account Manager ([facility]) Gross description: 01 30 CC, PINK, CLEAR RECIEVED: IN CYTOLYT WITH 6 ALCOHOL FIXED AND 6 QUICK STAINED SLIDES ALSO 1 RNA VIAL WAS RECEIVED.VO /VDU 08/21/2022 0849 Local FLAG LEGEND: L-Low Normal,H-High Normal,LL-Alert Low,HH-Alert High <-Panic Low,>-Panic High,A-Abnormal,AA-Critical Abnormal Performed at: 01 =Z [facility] [address] [place] [address] [address], [place] [address] Durga Gusman MD, Performed at: 01 [facility] Cytology [address] [place] [address] [address], [place], [place] [id number] MD Durga Gusman MD Phone: [phone]
--- NOTE | 2022-08-20 | DI.US.S_ITS ---
PROCEDURE: US FINE NEEDLE ASPIRATION INDICATIONS: LEFT THYROID NODULE TECHNIQUE: The indications, alternatives, benefits, risks, and complications of the procedure were explained to the patient. Written informed consent was obtained and placed in the chart. The thyroid region was examined sonographically and a site was chosen for ultrasound guided percutaneous sampling. The skin was prepared and draped in the usual fashion, and anesthetized with 1% lidocaine infiltrated from the skin down to the thyroid gland. Multiple passes were then performed, with contents emptied into an appropriate pathology specimen container. A bandage was applied to the area of access at completion of the study. COMPARISON: [facility], , US FINE NEEDLE ASPIRATION, 06/13/2022, 13:32. FINDINGS: Location of lesion sampled: Left superior (nodule #3 on prior ultrasound from 05/10/2022) [place]: 25 gauge hypodermic needles. Number of passes: Six Medications: 1% lidocaine for local anaesthesia. Complications: None. IMPRESSION: Successful ultrasound-guided thyroid nodule fine needle aspiration, with cytology results pending. Please see chart below for management recommendations based on cytology results. Approved by: Murphy Stauffer M.D. on 08/20/2022 at 15:24
== END ==
PROVIDERS: PCP Family Medicine; Referring Provider Otolaryngology; Visit Provider Otolaryngology
DX: E04.2 Nontoxic multinodular goiter (principal)
CPT/HCPCS: 10005

== ENCOUNTER → 2022-11-14 08:16 | Outpatient (CLI) | payer MEDICARE, OTHER, SELFPAY ==
[2022-11-14 10:10] LABS: HEMOLYSIS < 15 (0-50); Potassium 4.6 mmol/L (3.4-5.1)
[2022-11-14 10:11] LABS: Alanine Aminotransferase 48 IU/L (<35); Albumin 4.3 g/dL (3.5-5.0); Albumin Globulin Ratio 1.1 (1.0-2.8); Alkaline Phosphatase 71 U/L (38-126); Aspartate Aminotransferase 50 IU/L (14-36); BUN Creatinine Ratio 19.4 (6-22); Bilirubin Total 0.4 mg/dL (0.2-1.3); Blood Urea Nitrogen 12 mg/dL (7-17); Calcium 9.3 mg/dL (8.4-10.2); Carbon Dioxide 24 mmol/L (22-32); Chloride 104 mmol/L (98-107); Cholesterol 244 mg/dL (140-199); Estimated Glomerular Filt Rate > 60 mL/min (>60); Glucose 108 mg/dL (80-110); HDL Cholesterol 73 mg/dL (40-60); LDL Cholesterol Calculated 140 mg/dL (<100); Sodium 135 mmol/L (137-145); Total Protein 8.3 g/dL (6.3-8.2); Triglycerides 155 mg/dL (35-150)
[2022-11-14 10:35] LABS: TSH w/ Reflex to FT4 0.39 uIU/mL (0.47-4.68)
[2022-11-14 11:08] LABS: Free T4, Direct Thyroxine 1.37 ng/dL (0.78-2.19)
== END ==
PROVIDERS: PCP Family Medicine; Referring Provider Family Medicine; Visit Provider Family Medicine
DX: E05.90 Thyrotoxicosis, unspecified without thyrotoxic crisis or storm (principal); F41.9 Anxiety disorder, unspecified; R11.0 Nausea; R74.8 Abnormal levels of other serum enzymes; E78.5 Hyperlipidemia, unspecified
CPT/HCPCS: 36415; 80053; 80061; 84439; 84443

== ENCOUNTER → 2023-05-20 09:24 | Outpatient (CLI) | payer MEDICARE, OTHER, SELFPAY ==
--- NOTE | 2023-05-20 | DI.RAD.S_ITS ---
PROCEDURE: XR CERVICAL SPINE 2V OR 3V INDICATIONS: neck pain TECHNIQUE: Three views of the cervical spine were acquired. COMPARISON: None. FINDINGS: Bones: No acute fractures or dislocations to the T1 level. The lateral masses of C1 appear intact on the odontoid view. No suspicious bony lesions. Multilevel joint space narrowing degenerative endplate changes are seen, most prominently at the C5-6 disc space level. There is multilevel uncovertebral joint and facet hypertrophy. Soft tissues: No prevertebral soft tissue swelling. IMPRESSION: Moderate multilevel spondylosis. Cervical spine MRI could be performed for further evaluation if indicated clinically. Approved by: Murphy Stauffer M.D. on 05/20/2023 at 16:32
--- NOTE | 2023-05-20 09:29 | DI.CT.S_ITS ---
PROCEDURE: CT LUNG LOW DOSE SCREENING INDICATIONS: history of smoking cigarettes TECHNIQUE: Noncontrast 2.0-2.5 mm thick sections acquired from the pulmonary apices to the posterior costophrenic angles. 7 mm thick axial MIP, and 5 mm coronal and sagittal reformats were then acquired. For radiation dose reduction, the following was used: automated exposure control, adjustment of mA and/or kV according to patient size. COMPARISON: Thyroid ultrasound 05/10/2022. FINDINGS: Image quality: Diagnostic. Lower Neck: No enlarged lymph nodes. Thyroid: Redemonstration of known bilateral thyroid cysts. Axillae: No enlarged lymph nodes. Chest Wall: Unremarkable. Bones: Unremarkable. Lungs and Pleura: No pneumothorax or pleural effusions. 4 millimeter right upper lobe solid pulmonary nodule (3/99, MIP image 51). Additional scattered pulmonary micro nodules. Heart: Heart size is normal. No pericardial effusion. Moderate coronary artery calcifications. Thoracic Vessels: The aorta and pulmonary arteries demonstrate normal size. Mediastinum and Ana: No enlarged lymph nodes. Esophagus: No wall thickening. No hiatal hernia. Upper Abdomen: Visualized upper abdomen solid organs and bowel loops appear normal. IMPRESSION: Scattered sub 6 millimeter pulmonary nodules. LUNG-RADS 2; continued annual screening, if eligible. Clinically Significant Non-pulmonary Findings: Moderate pulmonary artery calcifications. Consider cardiology referral. Approved by: Adia Kaur M.D. on 05/21/2023 at 0:06
== END ==
LOC: CT 09:28
PROVIDERS: PCP Family Medicine; Referring Provider Family Medicine; Visit Provider Family Medicine
DX: M47.812 Spondylosis without myelopathy or radiculopathy, cervical region (principal); M54.2 Cervicalgia; G89.29 Other chronic pain; Z12.2 Encounter for screening for malignant neoplasm of respiratory organs; F17.210 Nicotine dependence, cigarettes, uncomplicated; E05.90 Thyrotoxicosis, unspecified without thyrotoxic crisis or storm; R91.8 Other nonspecific abnormal finding of lung field; R74.8 Abnormal levels of other serum enzymes; F41.9 Anxiety disorder, unspecified
CPT/HCPCS: 71271; 72040

== ENCOUNTER → 2023-05-21 10:05 | Outpatient (CLI) | payer MEDICARE, OTHER, SELFPAY ==
[2023-05-21 11:20] LABS: Alanine Aminotransferase 76 IU/L (<35); Albumin 4.4 g/dL (3.5-5.0); Alkaline Phosphatase 62 U/L (38-126); Aspartate Aminotransferase 72 IU/L (14-36); BUN Creatinine Ratio 18.6 (6-22); Bilirubin Total 0.6 mg/dL (0.2-1.3); Blood Urea Nitrogen 13 mg/dL (7-17); Calcium 10.3 mg/dL (8.4-10.2); Carbon Dioxide 25 mmol/L (22-32); Chloride 102 mmol/L (98-107); Estimated Glomerular Filt Rate > 60 mL/min (>60); Globulin 4.6 g/dL (1.7-4.1); Glucose 92 mg/dL (80-110); HEMOLYSIS < 15 (0-50); Potassium 4.6 mmol/L (3.4-5.1); Sodium 136 mmol/L (137-145)
[2023-05-21 20:06] LABS: Hep C Virus Ab w/Reflex Quant REACTIVE s/c (NEGATIVE)
[2023-05-23 14:44] LABS: Albumin 3.8 g/dL (2.9-4.4); Alpha-1-Globulin 0.3 g/dL (0.0-0.4); Globulin Total 4.4 g/dL (2.2-3.9); Protein, Total 8.2 g/dL (6.0-8.5)
[2023-05-24 12:36] LABS: Alpha-1 Globulin, Ur 5.1 % (.); Beta Globulin, Ur 34.6 % (.); Gamma Globulin, Ur 24.1 % (.); M-Spike % Not Observed % (Not Observed); Urine Total Protein 6.6 mg/dL (Not Estab.)
[2023-05-25 20:07] LABS: HBsAg Screen Negative (Negative); HCV RNA 29600000 IU/mL (.); HCV log 10 7.471 (.); Hepatitis A Antibody IgM Negative (Negative); Hepatitis B Core Antibody IgM Negative (Negative); Hepatitis C Antibody Reactive (Non Reactive); Hepatitis C Quant See Final Results IU/mL (.)
[2023-05-31 12:02] LABS: HCV log 10 7.471
== END ==
PROVIDERS: PCP Family Medicine; Referring Provider Family Medicine; Visit Provider Family Medicine
DX: E05.90 Thyrotoxicosis, unspecified without thyrotoxic crisis or storm (principal); F17.210 Nicotine dependence, cigarettes, uncomplicated; R74.8 Abnormal levels of other serum enzymes; E78.5 Hyperlipidemia, unspecified; F41.9 Anxiety disorder, unspecified; Z87.891 Personal history of nicotine dependence
CPT/HCPCS: 80053; 80074; 84155; 84156; 84165; 84166; 86803; 87522

== ENCOUNTER → 2023-05-31 16:08 | Outpatient (CLI) | payer MEDICARE, OTHER, SELFPAY ==
--- NOTE | 2023-05-31 16:10 | DI.MRI.S_ITS ---
PROCEDURE: MR CERVICAL SPINE WO CON INDICATIONS: c-spine spondlyosis, chronic neck pain, bilat radiculopathy TECHNIQUE: Noncontrast sagittal T1 spin echo and T2 fast spin echo, sagittal STIR, foraminal oblique sagittal T2 fast spin echo, and axial gradient echo or T2 fast spin echo through the cervical spine. COMPARISON: US, US THYROID, 05/10/2022, 10:41. [facility], CT, CT LUNG LOW DOSE SCREENING, 05/20/2023, 9:43. [facility], CR, XR CERVICAL SPINE 2V OR 3V, 05/20/2023, 10:42. FINDINGS: Image quality: Excellent. Alignment and Curvature: There is trace retrolisthesis of C3 on C4, C5 on C6. Bone Marrow: Marrow demonstrates normal overall signal. Spinal Cord: Visualized spinal cord has normal size and signal. No cerebellar tonsillar herniation. Paraspinous Soft Tissues: No paravertebral masses. Prevertebral soft tissues are normal in thickness. Thyroid gland is markedly enlarged as identified on prior CT and ultrasound. Discs: Multilevel moderate to severe disc desiccation is present most prominent at C3-4, C5-6. C2-C3: No disc bulge, spinal stenosis or foraminal narrowing. C3-C4: Mild disc bulge with minimal to mild spinal stenosis. Moderate to severe bilateral foraminal narrowing with uncovertebral hypertrophy. C4-C5: Mild disc bulge without spinal stenosis. Mild bilateral foraminal narrowing with uncovertebral hypertrophy. C5-C6: Mild disc bulge with minimal to mild spinal stenosis. Moderate bilateral foraminal narrowing with uncovertebral hypertrophy. C6-C7: Mild disc bulge without spinal stenosis. Moderate bilateral foraminal narrowing with uncovertebral hypertrophy. C7-T1: No disc bulge, spinal stenosis or foraminal narrowing. IMPRESSION: Multilevel disc bulges. Multilevel foraminal narrowing most severe at C3-4 secondary to uncovertebral arthropathy. Dictated by: Merlene Jin M.D. on 06/03/2023 at 10:58 Approved by: Merlene Jin M.D. on 06/03/2023 at 11:01
== END ==
LOC: MRI 16:09
PROVIDERS: PCP Family Medicine; Referring Provider Family Medicine; Visit Provider Family Medicine
DX: M47.812 Spondylosis without myelopathy or radiculopathy, cervical region (principal); M50.31 Other cervical disc degeneration, high cervical region; M48.02 Spinal stenosis, cervical region
CPT/HCPCS: 72141

== ENCOUNTER → 2023-07-11 10:21 | Outpatient (CLI) | payer MEDICARE, OTHER, SELFPAY ==
[2023-07-11 12:19] LABS: Alanine Aminotransferase 66 IU/L (<35); Albumin 4.4 g/dL (3.5-5.0); Albumin Globulin Ratio 0.9 (1.0-2.8); Alkaline Phosphatase 82 U/L (38-126); Aspartate Aminotransferase 71 IU/L (14-36); BUN Creatinine Ratio 15.2 (6-22); Bilirubin Total 0.6 mg/dL (0.2-1.3); Blood Urea Nitrogen 10 mg/dL (7-17); Calcium 9.8 mg/dL (8.4-10.2); Carbon Dioxide 16 mmol/L (22-32); Chloride 107 mmol/L (98-107); Cholesterol 274 mg/dL (140-199); Estimated Glomerular Filt Rate > 60 mL/min (>60); Globulin 4.8 g/dL (1.7-4.1); Glucose 99 mg/dL (80-110); HDL Cholesterol 60 mg/dL (40-60); HEMOLYSIS < 15 (0-50); LDL Cholesterol Calculated 165 mg/dL (<100); Potassium 4.4 mmol/L (3.4-5.1); Sodium 137 mmol/L (137-145); Total Protein 9.2 g/dL (6.3-8.2); Triglycerides 247 mg/dL (35-150)
[2023-07-11 12:33] LABS: TSH w/ Reflex to FT4 0.54 uIU/mL (0.47-4.68)
[2023-07-12 08:18] LABS: Apolipoprotein B 132 mg/dL (<90)
[2023-07-14 21:35] LABS: Lipoprotein (a) 22.6 nmol/L (<75.0)
== END ==
PROVIDERS: PCP Family Medicine; Referring Provider Family Medicine; Visit Provider Family Medicine
DX: E05.90 Thyrotoxicosis, unspecified without thyrotoxic crisis or storm (principal); E78.5 Hyperlipidemia, unspecified; R74.8 Abnormal levels of other serum enzymes
CPT/HCPCS: 36415; 80053; 80061; 82172; 83695; 84443

== ENCOUNTER → 2023-10-08 08:45 | Outpatient (CLI) | payer MEDICARE, OTHER, SELFPAY ==
--- NOTE | 2023-10-08 08:46 | DI.US.S_ITS ---
PROCEDURE: US THYROID INDICATIONS: MULTIPLE THYROID NODULES TECHNIQUE: Real-time scanning was performed of the thyroid gland, with image documentation. COMPARISON: [facility], US, US THYROID, 05/10/2022, 10:41. FINDINGS: Thyroid: Right lobe measures 6.2 x 2.8 x 3.4 cm. Left lobe measures 5.0 x 1.9 x 1.7 cm. Isthmus is 0.3 cm thick. Echotexture is homogeneous. Nodule number: 1 Location: Right superior Size: 4.0 x 2.6 x 2.7 cm with re-measurement compared to 4.2 x 2.8 x 2.2 cm. Composition: Solid Echogenicity: Hypoechoic Shape: wider than tall. Margins: Smooth Echogenic foci: None Total points: 4 ACR TI-RADS category: 4 Nodule number: 2 Location: Right inferior Size: 2.6 x 1.4 x 1.5 cm compared to 1.5 x 1.4 x 1.8 cm. Composition: Solid Echogenicity: Hypoechoic Shape: wider than tall. Margins: Smooth Echogenic foci: None Total points: 4 ACR TI-RADS category: 4 Nodule number: 3 Location: Left superior Size: 1.3 x 0.9 x 1.1 cm compared to 1.2 x 0.7 x 1.2 cm. Composition: Solid Echogenicity: Hypoechoic Shape: wider than tall. Margins: Smooth Echogenic foci: None Total points: 4 ACR TI-RADS category: 4 IMPRESSION: Relatively stable appearance of lesions 1 and 3. Continued interval follow-up annually is recommended. Interval increase in size of lesion to. FNA is recommended. ACR TI-RADS definitions and recommendations: TI-RADS 1 (benign): 0 points. FNA not needed. TI-RADS 2 (not suspicious): 2 points. FNA not needed. TI-RADS 3 (mildly suspicious): 3 points. * FNA if 2.5 cm or larger, follow up if 1.5 cm or larger (at 1, 3, and 5 years). TI-RADS 4 (moderately suspicious): 4-6 points. * FNA if 1.5 cm or larger, follow up if 1 cm or larger (at 1, 2, 3, and 5 years). TI-RADS 5 (highly suspicious): 7 points or more. * FNA if 1 cm or larger, follow up if 0.5 cm or larger (every year for 5 years). Dictated by: Merlene Jin M.D. on 10/08/2023 at 15:35 Approved by: Merlene Jin M.D. on 10/08/2023 at 15:41
== END ==
PROVIDERS: PCP Family Medicine; Referring Provider Otolaryngology; Visit Provider Otolaryngology
DX: E04.2 Nontoxic multinodular goiter (principal)
CPT/HCPCS: 76536

== ENCOUNTER → 2024-07-31 07:46 | Outpatient (CLI) | payer MEDICARE, OTHER, SELFPAY ==
--- NOTE | 2024-07-31 07:47 | DI.CT.S_ITS ---
PROCEDURE: CT LUNG LOW DOSE SCREENING INDICATIONS: smoking history TECHNIQUE: Noncontrast 2.0-2.5 mm thick sections acquired from the pulmonary apices to the posterior costophrenic angles. 7 mm thick axial MIP, and 5 mm coronal and sagittal reformats were then acquired. For radiation dose reduction, the following was used: automated exposure control, adjustment of mA and/or kV according to patient size. COMPARISON: [facility], CT, CT LUNG LOW DOSE SCREENING, 05/20/2023, 9:43. FINDINGS: Image quality: Diagnostic. Lower Neck: No enlarged lymph nodes. Thyroid: No thyroid nodules which require sonographic follow up, per consensus guidelines. Axillae: No enlarged lymph nodes. Chest Wall: Unremarkable. Bones: Unremarkable. Lungs and Pleura: No pneumothorax or pleural effusions. Mild centrilobular emphysema is present, as was previously the case. Within the right and left upper lobes 2 small nodular radiodensities are again seen measuring 4 mm, currently best visualized centered on series 3, image 59 on the right and image 78 on the left. No new nodules have developed elsewhere. Heart: Heart size is normal. No pericardial effusion. Thoracic Vessels: The aorta and pulmonary arteries demonstrate normal size. Mediastinum and Ana: No enlarged lymph nodes. Esophagus: No wall thickening. No hiatal hernia. Upper Abdomen: Visualized upper abdomen solid organs and bowel loops appear normal. IMPRESSION: No malignant-appearing pulmonary nodules are found. LUNG-RADS 1; continued annual screening, if eligible. Clinically Significant Non-pulmonary Findings: Centrilobular upper lobe mild emphysematous change consistent with longstanding smoking history. Dictated by: Rush Su M.D. on 07/31/2024 at 14:14 Approved by: Rush Su M.D. on 07/31/2024 at 14:28
--- NOTE | 2024-07-31 07:47 | DI.MG.S_ITS ---
MM screening mammo BI: 07/31/2024. BI-RADS: 1 CLINICAL: 69-year old female for bilateral screening mammogram. Tyrer-Cuzick lifetime risk of 2.3%. No personal or first-degree family history of breast cancer. History of ovarian cancer in one first-degree relative. PRIOR EXAMS 04/08/2019. MAMMOGRAPHY TECHNIQUE: 2D and 3D (tomosynthesis) digital mammographic views obtained, with additional images as needed for full coverage. Current study was also evaluated with a Computer Aided Detection (CAD) system. DENSITY B. There are scattered areas of fibroglandular density. MAMMOGRAPHY FINDINGS Bilateral: No suspicious mass, asymmetry, microcalcification, or other abnormality seen. No significant change from comparison. IMPRESSION: * No evidence of malignancy. RECOMMENDATIONS Bilateral * Annual screening mammography. OVERALL ASSESSMENT CATEGORY BI-RADS-1: Negative. The [employer] recommends annual screening mammography beginning at age 40 for women with average risk of breast cancer. ELECTRONICALLY SIGNED: Manda Martinez M.D. on 07/31/2024 at 12:12:19 PM PT Interpreting Station ID: [id number]
== END ==
LOC: CT 07:47
PROVIDERS: PCP Family Medicine; Referring Provider Family Medicine; Visit Provider Family Medicine
DX: Z12.31 Encounter for screening mammogram for malignant neoplasm of breast (principal); J43.2 Centrilobular emphysema; R91.8 Other nonspecific abnormal finding of lung field; F17.210 Nicotine dependence, cigarettes, uncomplicated; Z80.41 Family history of malignant neoplasm of ovary
CPT/HCPCS: 71271; 77063; 77067

== ENCOUNTER → 2024-07-31 08:42 | Outpatient (CLI) | payer MEDICARE, OTHER, SELFPAY ==
[2024-07-31 10:06] LABS: Add Manual Diff / Slide Review NO; Basophils Absolute Auto 100 /uL (0-100); Basophils Percent Auto 0.8 % (0-2); Eosinophils Absolute Auto 100 /uL (0-450); Eosinophils Percent Auto 1.7 % (2-4); Hemoglobin 14.4 g/dL (12.0-16.0); Lymphocytes Absolute Auto 4700 /uL (1100-4500); Lymphocytes Percent Auto 55.7 % (25-40); Mean Corpuscular HGB Conc 34.4 % (30-36); Mean Corpuscular Hemoglobin 31.4 PG (26-34); Mean Corpuscular Volume 91.4 fL (80-100); Monocytes Absolute Auto 600 /uL (0-900); Monocytes Percent Auto 6.7 % (3-14); Neutrophils Absolute Auto 3000 /uL (1500-7000); Neutrophils Percent Auto 35.1 % (50-75); Platelet Count 290 X10^3/uL (150-400); Red Blood Cell Count 4.59 X10^6/uL (4.0-5.2); Red Cell Distribution Width 13.9 % (11.6-14.8); White Blood Cell Count 8.4 X10^3/uL (4.5-11.0)
[2024-07-31 10:34] LABS: HEMOLYSIS < 15 (0-50); Iron 118 ug/dL (37-170)
[2024-07-31 10:36] LABS: Alanine Aminotransferase 21 IU/L (<35); Albumin Globulin Ratio 1.2 (1.0-2.8); Alkaline Phosphatase 62 U/L (38-126); Aspartate Aminotransferase 31 IU/L (14-36); BUN Creatinine Ratio 19.7 (6-22); Bilirubin Total 0.5 mg/dL (0.2-1.3); Blood Urea Nitrogen 14 mg/dL (7-17); Calcium 10.3 mg/dL (8.4-10.2); Carbon Dioxide 20 mmol/L (22-32); Chloride 106 mmol/L (98-107); Cholesterol 231 mg/dL (140-199); Estimated Glomerular Filt Rate > 60 mL/min (>60); Globulin 4.2 g/dL (1.7-4.1); Glucose 103 mg/dL (80-110); HDL Cholesterol 62 mg/dL (40-60); HEMOLYSIS < 15 (0-50); LDL Cholesterol Calculated 115 mg/dL (<100); Potassium 4.3 mmol/L (3.4-5.1); Sodium 138 mmol/L (137-145); Total Protein 9.2 g/dL (6.3-8.2); Triglycerides 268 mg/dL (35-150)
[2024-07-31 10:46] LABS: Percent Iron Saturation 31 % (15-50); Total Iron Binding Capacity 377 ug/dL (265-497); Transferrin 317 mg/dL (206-381)
[2024-07-31 11:06] LABS: TSH w/ Reflex to FT4 0.63 uIU/mL (0.47-4.68)
[2024-07-31 11:11] LABS: Ferritin 24 ng/mL (11-264)
[2024-08-01 04:08] LABS: Alpha 1 Anti Trypsin 170 mg/dL (101-187); Apolipoprotein B 102 mg/dL (<90); Ceruloplasmin 28.9 mg/dL (19.0-39.0)
[2024-08-03 13:09] LABS: Anti Mitochondrial ABY IGG 37.5 Units (0.0-20.0); Smooth Muscle Antibody 14 Units (0-19)
[2024-08-03 14:35] LABS: Albumin 3.9 g/dL (2.9-4.4); Alpha-1-Globulin 0.3 g/dL (0.0-0.4); Alpha-2-Globulin 1.2 g/dL (0.4-1.0); Gamma Globulin 2.1 g/dL (0.4-1.8); Globulin Total 4.7 g/dL (2.2-3.9); Protein, Total 8.6 g/dL (6.0-8.5)
[2024-08-04 13:09] LABS: ANA Screen, IFA Negative (.)
== END ==
PROVIDERS: PCP Family Medicine; Referring Provider Family Medicine; Visit Provider Family Medicine
DX: C73 Malignant neoplasm of thyroid gland (principal); E05.90 Thyrotoxicosis, unspecified without thyrotoxic crisis or storm; R74.8 Abnormal levels of other serum enzymes; F41.9 Anxiety disorder, unspecified; E04.1 Nontoxic single thyroid nodule; R76.8 Other specified abnormal immunological findings in serum
CPT/HCPCS: 36415; 71271; 80053; 80061; 81596; 82103; 82172; 82390; 82728; 83516; 83540; 83550; 84155; 84165; 84443; 85025; 86015; 86038; 86376